=== PATIENT | female | born 2000 | race Two or more races ===

== ENCOUNTER 2021-07-13 19:22 | Emergency (ER) | payer SELFPAY ==
[~2021-07-13] VITALS: Ht 162.6 cm; Wt 49.9 kg
--- NOTE | 2021-07-13 20:10 | NUR ---
BROUGHT IN C/O OF S/P SEIZURE AT 1900. HX OF SZR DISORDER AND STATES SHE FORGOT TO TAKE HER KEPPRA THIS MORNING. PRESENTS WITH LACERATION TO CHIN AND CONTUSION OF LIP. PT POSTICAL BUT RESPONSIVE, FATHER AT BEDSIDE. PT BREATHING EVEN AND UNLABORED CHANGED INTO GOWN AND PLACED ON MONITOR AND V/S STABLE.
--- NOTE | 2021-07-13 20:40 | NUR ---
20G IV LIBNE ESTABLISHED AT [facility]. BLOOD DRAWN AND SENT TO LAB.
[2021-07-13 20:54] LABS: BASOPHILS % (AUTO) 0.4 % (0.0-2.0); EOSINOPHILS % (AUTO) 1.1 % (0.0-6.0); HEMATOCRIT 39 % (33-45); HEMOGLOBIN 12.9 g/dL (11.5-14.8); LYMPHOCYTES # (AUTO) 1.6 K/uL (0.8-4.8); MEAN CORPUSCULAR HGB CONC 33 g/dl (31.0-36.0); MEAN CORPUSCULAR VOLUME 90 fL (82-100); MONOCYTES # (AUTO) 0.4 K/uL (0.1-1.30); MONOCYTES % (AUTO) 6.3 % (2.0-12.0); NEUTROPHILS # (AUTO) 4.8 K/uL (1.8-8.9); NEUTROPHILS % (AUTO) 69.2 % (43.0-81.0); PLATELET COUNT (AUTO) 272 K/uL (150-450); RED BLOOD CELL COUNT(AUTO) 4.31 MIL/uL (4.0-5.2); WHITE BLOOD COUNT (AUTO) 6.9 K/uL (4.3-11.0)
[2021-07-13] MEDS ORDERED: IV NS 0.9% 500 ML BAG IV ONE ×2 (21:00→22:30)
[2021-07-13] MEDS ORDERED: LEVETIRACETAM (500MG) 1,000 MG in IV NS 0.9% 100 ML IV SCH ×4 (21:00)
[2021-07-13] MEDS ORDERED: LEVETIRACETAM (500MG) 500 MG/5 ML VIAL IV ONE ×3 (21:00→21:45)
[2021-07-13] MEDS ORDERED: IV NS 0.9% 1,000 ML BAG IV ONE (21:00)
[2021-07-13] MEDS ORDERED: DIPHENHYDRAMINE HCL 12.5 MG/5 ML UDC PO ONE (21:00)
[2021-07-13] MEDS ORDERED: METOCLOPRAMIDE HCL 10 MG/2 ML VIAL IV ONE (21:00)
[2021-07-13] MEDS ORDERED: KETOROLAC TROMETHAMINE INJ 30 MG/ML VIAL IM ONE (21:00)
[2021-07-13 21:20] LABS: CARBON DIOXIDE 27 mmol/L (21-32); CHLORIDE 102 mmol/L (98-107); CREATININE 0.7 mg/dL (0.6-1.3); GLUCOSE 82 mg/dL (74-106); POTASSIUM 4.1 mmol/L (3.5-5.1); SODIUM SERUM 136 mmol/L (136-145); UREA NITROGEN, BLOOD 12 mg/dL (7-18)
[2021-07-13] MEDS ORDERED: KETOROLAC TROMETHAMINE 15 MG/ML VIAL ONE (21:23)
[2021-07-13] MEDS ORDERED: diphenhydrAMINE HCL 50 MG/ML VIAL ONE (21:23)
[2021-07-13 21:26] LABS: ALANINE AMINOTRANSFERASE 21 U/L (12-78); ALCOHOL, BLOOD < 3 mg/dL (0-0); ALKALINE PHOSPHATASE 80 U/L (46-116); ASPARTATE AMINOTRANSFERASE 22 U/L (15-37); BILIRUBIN,DIRECT 0.1 mg/dL (0.0-0.2); BILIRUBIN,TOTAL 0.2 mg/dL (0.2-1.0); TOTAL PROTEIN, SERUM 7.8 g/dL (6.4-8.2)
[2021-07-13] MEDS ORDERED: METOCLOPRAMIDE HCL 10 MG/2 ML VIAL ONE (21:45)
[2021-07-13] MEDS ORDERED: Magnesium 1GM/D5W 100ML PREMIX 100 ML IV ONE ×2 (21:45→22:54)
[2021-07-13] MEDS ORDERED: LORAZEPAM 0.5 MG TABLET ONE (22:10)
[2021-07-13] MEDS: Magnesium 1GM/D5W 100ML PREMIX 100 ML IV SCH ×2 (22:16→23:16)
[2021-07-13] MEDS ORDERED: LORAZEPAM INJ 2 MG/ML VIAL IV ONE (22:30)
[2021-07-13] MEDS ORDERED: LORAZEPAM 0.5 MG TABLET PO ONE (22:30)
--- NOTE | 2021-07-13 23:42 | NUR ---
IV removed. Catheter intact and site benign. Pressure and 4x4 applied to site. No bleeding noted.Patient discharged to home in stable condition. Written and verbal after care instructions given. Patient verbalizes understanding of instruction.
[2021-07-13 23:49] VITALS: BP 110/72
== END 2021-07-13 23:51 | disposition home or self-care (01) ==
LOC: ER 19:30
DX: S01.81XA Laceration without foreign body of other part of head, initial encounter (principal); G40.909 Epilepsy, unspecified, not intractable, without status epilepticus; W19.XXXA Unspecified fall, initial encounter; Y93.89 Activity, other specified; Y92.89 Other specified places as the place of occurrence of the external cause; Y99.8 Other external cause status
CPT/HCPCS: 12011; 36415; 80048; 80076; 80307; 80320; 84703; 85025; 96365; 96366; 96375; 99284; J1200; J1885; J1953 ×5; J2765; J3475 ×2; J7030 ×3; J7040; Q0163; G0480

== ENCOUNTER 2021-07-16 08:59 | Emergency (ER) | payer OTHER ==
[~2021-07-16] VITALS: Ht 162.6 cm; Wt 49.0 kg
[2021-07-16 09:04] VITALS: BP 112/57
--- NOTE | 2021-07-16 09:10 | NUR ---
BIB SELF FOR WOUND CHECK SEEN HERE 2 DAYS AGO FOR CHIN LAC. NO S/S INFECTION NOTED. WILL CONTINUE TO MONITOR THE PATIENT.
--- NOTE | 2021-07-16 09:22 | NUR ---
Patient discharged to home in stable condition. Written and verbal after care instructions given. Patient verbalizes understanding of instruction.
== END 2021-07-16 09:22 | disposition home or self-care (01) ==
LOC: ER 09:05
DX: S01.81XD Laceration without foreign body of other part of head, subsequent encounter (principal); Z86.69 Personal history of other diseases of the nervous system and sense organs; Z87.39 Personal history of other diseases of the musculoskeletal system and connective tissue; X58.XXXD Exposure to other specified factors, subsequent encounter

== ENCOUNTER 2021-07-21 11:18 | Emergency (ER) | payer OTHER | END 2021-07-21 12:00 | disposition home or self-care (01) | LOC: ER 11:20 | DX: S01.81XD Laceration without foreign body of other part of head, subsequent encounter (principal); X58.XXXD Exposure to other specified factors, subsequent encounter ==